=== PATIENT | female | born 1990 | race Caucasian/White ===

== ENCOUNTER 2017-12-11 16:33 | Emergency (ER) | payer OTHER ==
[~2017-12-11] VITALS: Ht 175.3 cm; Wt 68.0 kg
[~2017-12-11 16:33] MED LIST: BIRTHCONTROL; DOXY-228 PO
--- NOTE | 2017-12-11 16:43 | ER Report ---
History and Physical Time Seen By MD: 16:43 HPI/ROS CHIEF COMPLAINT: Dizziness HISTORY OF PRESENT ILLNESS: 27-year-old female patient presents to emergency room with complaint of dizziness. Patient states this is been going on for the past several weeks. 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 Patient states that she has been having persistent bleeding for the past 16 months. Patient states that she is seeing her oncologist for this, she has had pelvic exams, been changed off of her control and placed on an IUD. Patient states that she has had persistent bleeding since then. Her provisioning analyst is told her this been expected with the change to the LAD. Patient states that for 3 weeks and she is returned to school she has been feeling very dizzy. She states she is not as that when she is in class, she states that she was sitting on the couch and became extremely dizzy and "blacked out". Patient denies loss of consciousness. She denies any nausea, vomiting and diarrhea. Patient states she is eating and drinking well without any difficulties. REVIEW OF SYSTEMS: Respiratory: No cough, no dyspnea. Cardiovascular: No chest pain, no palpitations. Gastrointestinal: No vomiting, no abdominal pain. Musculoskeletal: No back pain. Allergies: Coded Allergies: cefaclor (Verified Allergy, Unknown, RASH, 11/10/16) Home Meds Active Scripts Meclizine Hcl (MECLIZINE HCL) 25 Mg Tablet, 25 MG PO Q6H Y for DIZZINESS, #30 TAB Prov:TEOFILO OLSON 12/11/17 Scopolamine (Transderm-Scop) 1 Mg/3 Day Patch.td.3, 1 PATCH TD Q3D Y for DIZZINESS, #3 PATCH Prov:TEOFILO OLSON 12/11/17 Past Medical/Surgical History Patient has a past medical history of cervical polyps, limb syndrome, alcohol use. Patient has surgical history of colonoscopy, endoscopy, wisdom tooth surgery, D& C with polyp removal. Reviewed Nurses Notes: Yes Hx Smoking: No Hx Substance Use Disorder: No Hx Alcohol Use: Yes (WEEKENDS) Constitutional Vital Sign - Last 24 Hours 12/11/17 16:42 Pulse 111 Resp 20 B/P (MAP) 159/96 Pulse Ox 100 O2 Delivery Room Air Intake and Output 12/11/17 12/11/1712/12/18 15:00 23:00 07:00 Intake Total 1000 ml Balance 1000 ml Physical Exam General Appearance: The patient is alert, has no immediate need for airway protection and no current signs of toxicity. ENT: Tympanic membranes are pearly-aden, auditory canals are patent, mixed mucous membranes are moist. Respiratory: Chest is non tender, lungs are clear to auscultation. Cardiac: regular rate and rhythm Gastrointestinal: Abdomen is soft and non tender, no masses, bowel sounds normal. Musculoskeletal: Neck: Neck is supple and non tender. Extremities have full range of motion and are non tender. Skin: No rashes or lesions. DIFFERENTIAL DIAGNOSIS: After history and physical exam differential diagnosis was considered for dizziness including but not limited to peripheral and central causes of vertigo, orthostatic causes including dehydration, and blood loss. Medical Decision Making Data Points Result Diagram: 12/11/17 1700 12/11/17 1700 Laboratory Hematology Test 12/11/17 16:45 12/11/17 17:00 Urine Color Straw Urine Clarity Clear Urine pH 7.0 pH (4.8-9.5) Urine Specific [place] 1.004 Urine Protein Negative mg/dL (NEGATIVE) Urine Glucose (UA) Negative mg/dL (NEGATIVE) Urine Ketones Negative mg/dL (NEGATIVE) Urine Blood Moderate (NEGATIVE) Urine Nitrite Negative (NEGATIVE) Urine Bilirubin Negative (NEGATIVE) Urine Urobilinogen Negative mg/dL (0.2-1.9) Urine Leukocyte Esterase Negative (NEGATIVE) Urine RBC <1 /HPF (0-2/HPF) Urine WBC 1 /HPF (0-5/HPF) Urine Squamous Epithelial Cells Many /LPF (</=FEW) Urine Bacteria Few /HPF (NONE-FEW) Urine Mucus None /HPF (NONE-FEW) Red Blood Count 4.79 M/uL (4.17-5.56) Mean Corpuscular Volume 90.6 fL (80.0-96.0) Mean Corpuscular Hemoglobin 31.5 pg (26.0-33.0) Mean Corpuscular Hemoglobin Concent 34.8 g/dL (32.0-36.0) Red Cell Distribution Width 13.2 % (11.5-14.5) Mean Platelet Volume 7.5 fL (7.2-11.1) Neutrophils (%) (Auto) 59.9 % (39.4-72.5) Lymphocytes (%) (Auto) 30.5 % (17.6-49.6) Monocytes (%) (Auto) 7.6 % (4.1-12.4) Eosinophils (%) (Auto) 1.4 % (0.4-6.7) Basophils (%) (Auto) 0.6 % (0.3-1.4) Nucleated RBC Relative Count (auto) 0.0 /100WBC Neutrophils # (Auto) 4.7 K/uL (2.0-7.4) Lymphocytes # (Auto) 2.4 K/uL (1.3-3.6) Monocytes # (Auto) 0.6 K/uL (0.3-1.0) Eosinophils # (Auto) 0.1 K/uL (0.0-0.5) Basophils # (Auto) 0.0 K/uL (0.0-0.1) Nucleated RBC Absolute Count (auto) 0.00 K/uL Sodium Level 139 mmol/L (137-145) Potassium Level 3.9 mmol/L (3.5-5.0) Chloride Level 100 mmol/L (98-107) Carbon Dioxide Level 24 mmol/L (22-31) Blood Urea Nitrogen 12 mg/dl (7-18) Creatinine 0.80 mg/dl (0.52-1.04) Glomerular Filtration Rate Calc > 60.0 Random Glucose 89 mg/dl (75-110) Calcium Level 10.0 mg/dl (8.4-10.2) Total Bilirubin 0.3 mg/dl (0.2-1.3) Aspartate Amino Transf (AST/SGOT) 27 U/L (0-35) Alanine Aminotransferase (ALT/SGPT) 42 U/L (0-56) Alkaline Phosphatase 96 U/L (0-126) Total Protein 8.5 gm/dl (6.3-8.2) Albumin 4.9 g/dl (3.5-5.0) Human Chorionic Gonadotropin, Qual Negative (NEGATIVE) Chemistry Test 12/11/17 16:45 12/11/17 17:00 Urine Color Straw Urine Clarity Clear Urine pH 7.0 pH (4.8-9.5) Urine Specific [place] 1.004 Urine Protein Negative mg/dL (NEGATIVE) Urine Glucose (UA) Negative mg/dL (NEGATIVE) Urine Ketones Negative mg/dL (NEGATIVE) Urine Blood Moderate (NEGATIVE) Urine Nitrite Negative (NEGATIVE) Urine Bilirubin Negative (NEGATIVE) Urine Urobilinogen Negative mg/dL (0.2-1.9) Urine Leukocyte Esterase Negative (NEGATIVE) Urine RBC <1 /HPF (0-2/HPF) Urine WBC 1 /HPF (0-5/HPF) Urine Squamous Epithelial Cells Many /LPF (</=FEW) Urine Bacteria Few /HPF (NONE-FEW) Urine Mucus None /HPF (NONE-FEW) White Blood Count 7.8 k/uL (4.5-11.0) Red Blood Count 4.79 M/uL (4.17-5.56) Hemoglobin 15.1 g/dL (12.0-16.0) Hematocrit 43.4 % (34.0-47.0) Mean Corpuscular Volume 90.6 fL (80.0-96.0) Mean Corpuscular Hemoglobin 31.5 pg (26.0-33.0) Mean Corpuscular Hemoglobin Concent 34.8 g/dL (32.0-36.0) Red Cell Distribution Width 13.2 % (11.5-14.5) Platelet Count 288 K/uL (150-450) Mean Platelet Volume 7.5 fL (7.2-11.1) Neutrophils (%) (Auto) 59.9 % (39.4-72.5) Lymphocytes (%) (Auto) 30.5 % (17.6-49.6) Monocytes (%) (Auto) 7.6 % (4.1-12.4) Eosinophils (%) (Auto) 1.4 % (0.4-6.7) Basophils (%) (Auto) 0.6 % (0.3-1.4) Nucleated RBC Relative Count (auto) 0.0 /100WBC Neutrophils # (Auto) 4.7 K/uL (2.0-7.4) Lymphocytes # (Auto) 2.4 K/uL (1.3-3.6) Monocytes # (Auto) 0.6 K/uL (0.3-1.0) Eosinophils # (Auto) 0.1 K/uL (0.0-0.5) Basophils # (Auto) 0.0 K/uL (0.0-0.1) Nucleated RBC Absolute Count (auto) 0.00 K/uL Glomerular Filtration Rate Calc > 60.0 Calcium Level 10.0 mg/dl (8.4-10.2) Total Bilirubin 0.3 mg/dl (0.2-1.3) Aspartate Amino Transf (AST/SGOT) 27 U/L (0-35) Alanine Aminotransferase (ALT/SGPT) 42 U/L (0-56) Alkaline Phosphatase 96 U/L (0-126) Total Protein 8.5 gm/dl (6.3-8.2) Albumin 4.9 g/dl (3.5-5.0) Human Chorionic Gonadotropin, Qual Negative (NEGATIVE) Urinalysis Test 12/11/17 16:45 Urine Color Straw Urine Clarity Clear Urine pH 7.0 pH (4.8-9.5) Urine Specific [place] 1.004 Urine Protein Negative mg/dL (NEGATIVE) Urine Glucose (UA) Negative mg/dL (NEGATIVE) Urine Ketones Negative mg/dL (NEGATIVE) Urine Blood Moderate (NEGATIVE) Urine Nitrite Negative (NEGATIVE) Urine Bilirubin Negative (NEGATIVE) Urine Urobilinogen Negative mg/dL (0.2-1.9) Urine Leukocyte Esterase Negative (NEGATIVE) Urine RBC <1 /HPF (0-2/HPF) Urine WBC 1 /HPF (0-5/HPF) Urine Squamous Epithelial Cells Many /LPF (</=FEW) Urine Bacteria Few /HPF (NONE-FEW) Urine Mucus None /HPF (NONE-FEW) EKG/Imaging EKG Interpretation 12 lead EKG: Rhythm: normal sinus rhythm [place]: normal QRS: normal ST segments: normal Imaging CT Head without contrast Indication: Dizziness. Seeing black spots for one month. Comparison: None available Technique: Axial CT images were obtained through the brain from the skull base to the vertex without administration of IV contrast. Reformatted coronal and sagittal images were also obtained. One of the following dose optimization techniques was utilized in the performance of this exam: automated exposure control; adjustment of the mA and/ or kV according to the patient's size; or use of an iterative reconstruction technique. Specific details can be referenced in the facility's radiology CT exam operational policy. Findings: No evidence of mass, mass effect, or midline shift. No acute intracranial hemorrhage or acute territorial infarction. No extra-axial fluid collection or hydrocephalus. No abnormal density. [place]/ white matter differentiation appears normal. Bony structures show no fractures or lesions. The visualized paranasal sinuses and mastoid air cells are clear. IMPRESSION: 1. Negative unenhanced CT of the head. Report Dictated By: Maldonado King at 12/11/2017 7:27 PM Report E-Signed By: Maldonado King at 12/11/2017 7:32 PM Transabdominal and transvaginal pelvic ultrasound INDICATION: Pelvic bleeding for months. COMPARISON: None Available FINDINGS: Pelvic structures not as well visualized on treatment abdominal exam, therefore transvaginal exam was performed. Uterus measures 7.0 x 4.2 x 5.2 cm. The uterus is anteverted and homogeneous. No focal abnormality. Double wall endometrial stripe measures 3.9 mm and homogeneous. No fluid or focal normality. IUD appears to be in good position. There is no free fluid in the cul-de-sac. Urinary bladder is empty. Pelvic vessels appear unremarkable on this examination. Right ovary measures 4.1 x 1.9 x 2.3 cm and shows normal blood flow and contains several small follicles. Left ovary measures 3.8 x 1.9 x 2.4 cm and shows normal blood flow and contains several small follicles. No adnexal masses. IMPRESSION: 1. Unremarkable pelvic ultrasound. IUD appears to be in good position. No acute abnormality. Report Dictated By: Maldonado King at 12/11/2017 7:33 PM Report E-Signed By: Maldonado King at 12/11/2017 7:38 PM ED Course/Re-evaluation ED Course Patient was admitted exam room, history and physical were obtained. Differential diagnoses were considered. On examination patient had a negative Yamel-Hallpike, orthopedic blood pressures were done which were negative. A CBC, CMP, urinalysis were done. Patient had no anemia, no signs of infection. Electrolytes were normal, patient had moderate blood in her urine. An ultrasound of the pelvis was done which showed no acute findings, IUD was located probably in the uterus. An EKG was done which showed a normal sinus rhythm. I discussed the findings with the patient. We will go ahead and do a CT scan of the head, I was done which showed no acute findings. I discussed this with the patient. We will go ahead and treat this like it is a vertigo. We will place a scopolamine patch. Emergency room. We will also prescribe her 9 days worth of scopolamine as well as meclizine. I anticipate that the dizziness will resolve prior to that. However I would like her to follow-up with her primary care provider, since she typically lives in [place] I would like that to be with [facility]. With patient's permission I did contact her father, Dr. Michaud, police judge in [facility]. I discussed the findings with him. I also discussed my plan both he and his daughter verbalized understanding and agreement with plan. Decision to Disposition Date: Dec 11, 2017 Decision to Disposition Time: 20:04 Depart Departure Latest Vital Signs Vital Signs Date Time Temp Pulse Resp B/P (MAP) Pulse Ox O2 Delivery O2 Flow Rate FiO2 12/11/17 16:42 111 20 159/96 100 Room Air Impression: Primary Impression: Vertigo Condition: Improved Disposition: HOME OR SELF-CARE New Scripts Meclizine Hcl (MECLIZINE HCL) 25 Mg Tablet 25 MG PO Q6H Y for DIZZINESS, #30 TAB Prov: TEOFILO OLSON 12/11/17 Scopolamine (Transderm-Scop) 1 Mg/3 Day Patch.td.3 1 PATCH TD Q3D Y for DIZZINESS, #3 PATCH Prov: TEOFILO OLSON 12/11/17 Patient Instructions: Vertigo (ED) Additional Instructions: Increase fluid intake. Get plenty of rest. Limit activity by how you are feeling. Follow up with a primary care provider at [facility] in the next 1-2 weeks. Return to the ER if condition worsens. TEOFILO OLSON Dec 11, 2017 16:43
[2017-12-11] MEDS ORDERED: NS(*) 0.9% 1000 ML BAG 1,000 ML IV ONE (16:58)
[2017-12-11 17:10] LABS: PLATELET COUNT, AUTOMATED 288 K/uL (150-450)
--- NOTE | 2017-12-11 17:11 | EKG ---
FACILITY: [facility] [place] PATIENT NAME: ANUPAMA RODRÍGUEZ : [id number] MR: [id number] V: [id number] EXAM DATE: ORDERING PHYSICIAN: TEOFILO OLSON TECHNOLOGIST: LEYDI Garvey Reason : LIGHT HEADED Blood Pressure : / mmHG Vent. Rate : 077 BPM Atrial Rate : 077 BPM P-R Int : 142 ms QRS Dur : 088 ms QT Int : 376 ms P-R-T Axes : 067 054 059 degrees QTc Int : 425 ms Normal sinus rhythm No ST-T abnormalities No previous ECGs available Confirmed by THELMA GUILLEN ([id number]) on 12/11/2017 7:18:33 PM Referred By: DELL Confirmed By:THELMA GUILLEN
--- NOTE | 2017-12-11 19:35 | RADIOLOGY IMAGING REPORT ---
FACILITY: [facility] [place] PATIENT NAME: Sushila Michaud : 1990 MR: [id number] V: [id number] EXAM DATE: ORDERING PHYSICIAN: TEOFILO OLSON TECHNOLOGIST: Location: [facility] [place] Patient: Sushila Michaud : 1990 Visit/Account:[id number] Date of Sevice: 12/11/2017 CT Head without contrast Indication: Dizziness. Seeing black spots for one month. Comparison: None available Technique: Axial CT images were obtained through the brain from the skull base to the vertex without administration of IV contrast. Reformatted coronal and sagittal images were also obtained. One of the following dose optimization techniques was utilized in the performance of this exam: autom ated exposure control; adjustment of the mA and/or kV according to the patient's size; or use of an i terative reconstruction technique. Specific details can be referenced in the facility's radiology CT exam operational policy. Findings: No evidence of mass, mass effect, or midline shift. No acute intracranial hemorrhage or acute territorial infarction. No extra-axial fluid collection or hydrocephalus. No abnormal density. Aden/white matter differentiat ion appears normal. Bony structures show no fractures or lesions. The visualized paranasal sinuses and mastoid air cells are clear. IMPRESSION: 1. Negative unenhanced CT of the head. Report Dictated By: Maldonado King at 12/11/2017 7:27 PM Report E-Signed By: Maldonado iKng at 12/11/2017 7:32 PM WSN:[id number]
--- NOTE | 2017-12-11 19:41 | RADIOLOGY IMAGING REPORT ---
FACILITY: [facility] PATIENT NAME: Sushila Michaud : 1990 MR: [id number] V: [id number] EXAM DATE: ORDERING PHYSICIAN: TEOFILO OLSON TECHNOLOGIST: Location: [facility] Patient: Sushila Michaud : 1990 Visit/Account:[id number] Date of Sevice: 12/11/2017 Transabdominal and transvaginal pelvic ultrasound INDICATION: Pelvic bleeding for months. COMPARISON: None Available FINDINGS: Pelvic structures not as well visualized on treatment abdominal exam, therefore transvagina l exam was performed. Uterus measures 7.0 x 4.2 x 5.2 cm. The uterus is anteverted and homogeneous. No focal abnormality. Double wall endometrial stripe measures 3.9 mm and homogeneous. No fluid or focal normality. IUD appe ars to be in good position. There is no free fluid in the cul-de-sac. Urinary bladder is empty. Pelvic vessels appear unremarkable on this examination. Right ovary measures 4.1 x 1.9 x 2.3 cm and shows normal blood flow and contains several small follic les. Left ovary measures 3.8 x 1.9 x 2.4 cm and shows normal blood flow and contains several small follicl es. No adnexal masses. IMPRESSION: 1. Unremarkable pelvic ultrasound. IUD appears to be in good position. No acute abnormality. Report Dictated By: Maldonado King at 12/11/2017 7:33 PM Report E-Signed By: Maldonado King at 12/11/2017 7:38 PM WSN:[id number]
[2017-12-11] MEDS ORDERED: SCOPOLAMINE 1.5 MG PATCH TD ONE (19:55)
[2017-12-11] MEDS ORDERED: SCOP1PAT2 TD (20:03)
[2017-12-11] MEDS ORDERED: MECL25TA9 PO (20:03)
[2017-12-11 21:00] VITALS: BP 129/87
== END 2017-12-11 21:00 | disposition home or self-care (01) ==
LOC: ER 17:26
DX: R42 Dizziness and giddiness (principal)
CPT/HCPCS: 36415; 70450; 76856; 81001; 84703; 85025; 86850; 86900; 86901; 93005; 96360; 99284; J7030; 82040; 82247; 82310; 82374; 82435; 82565; 82947; 84075; 84132; 84155; 84295; 84450; 84460; 84520